=== PATIENT | female | born 1975 | race Caucasian/White ===

== ENCOUNTER 2021-03-12 14:32 | Emergency (ER) | payer OTHER ==
[~2021-03-12] VITALS: Ht 149.9 cm; Wt 41.7 kg
[2021-03-12] MEDS ORDERED: NAPROXEN250 MG PO (14:59)
== END 2021-03-12 15:06 | disposition home or self-care (01) ==
LOC: ER 14:58
DX: M54.6 Pain in thoracic spine (principal); R06.02 Shortness of breath; E78.5 Hyperlipidemia, unspecified
CPT/HCPCS: 99283

== ENCOUNTER 2022-10-22 08:00 | Outpatient (RCR) | payer OTHER ==
[~2022-10-22 08:00] MED LIST: NAPROXEN250 MG PO
== END 2022-10-24 ==
LOC: PT 08:00
PROVIDERS: ATTEND Internal Medicine
DX: M54.50 Low back pain, unspecified (principal); M62.81 Muscle weakness (generalized)